=== PATIENT | female | born 1985 | race Caucasian/White ===

== ENCOUNTER 2018-10-26 15:34 | Outpatient (REF) | payer BC, SELFPAY ==
[2018-10-26 19:55] LABS: HCT 42.3 % (36.0-46.0); HGB 14.3 g/dL (12.0-15.5); Mean Corp. HGB Concentration 33.8 g/dL (32.0-36.0); Mean Corpuscular Hemoglobin 32.1 pg (27.0-33.0); Mean Corpuscular Volume 95.1 fL (80-95); Mean Platelet Volume 10.6 fL (8.0-11.0); Platelet Count 284 x1000/uL (130-400); RBC 4.45 m/cumm (4.00-5.20); RBC Distribution Width 12.6 % (11.7-14.6); White Blood Cell Count 10.86 k/cumm (4.4-10.8)
[2018-10-26 20:14] LABS: Anion Gap 8.4 mmol/L (3-11); BUN 11 mg/dL (7-18); CO2 27.6 mmol/L (21.0-32.0); CREATININE 0.95 mg/dL (0.55-1.02); Calcium 8.6 mg/dL (8.5-10.1); Chloride 105 mmol/L (98-107); Glucose 112 mg/dL (70-100); Potassium 3.4 mmol/L (3.5-5.1); Sodium 141 mmol/L (136-145); TSH 4.49 uIU/mL (0.358-3.74)
== END 2018-10-26 15:54 ==
LOC: NCHCN 15:34
PROVIDERS: PCP Nurse Practitioner Family; Visit Provider Nurse Practitioner Family
DX: R00.2 Palpitations (principal)
CPT/HCPCS: 80048; 85027; 84443

== ENCOUNTER 2019-06-27 17:16 | Outpatient (REF) | payer BC, SELFPAY ==
[2019-06-27 20:52] LABS: TSH (W/Ref FT4) 1.36 uIU/mL (0.36-3.74)
== END 2019-06-27 17:36 ==
LOC: NCHCN 17:16
PROVIDERS: PCP Nurse Practitioner Family; Visit Provider Nurse Practitioner Family
DX: R00.2 Palpitations (principal)
CPT/HCPCS: 84443

== ENCOUNTER 2021-07-07 19:50 | Outpatient (REF) | payer SELFPAY ==
[2021-07-09 13:38] LABS: COVID-19 RT-PCR UVMMC Result Positive (Negative)
== END 2021-07-07 19:51 | disposition home or self-care (01) ==
LOC: NCHCN 19:50
PROVIDERS: PCP Nurse Practitioner Family; Visit Provider Nurse Practitioner Family
DX: Z20.822 Contact with and (suspected) exposure to COVID-19 (principal)
CPT/HCPCS: U0003

== ENCOUNTER 2024-07-05 14:56 | Outpatient (REF) | payer MEDICAID, SELFPAY ==
[2024-07-05 20:45] LABS: ALT 86 U/L (14-59); AST 194 U/L (15-37); Albumin 2.6 g/dL (3.4-5.0); Alkaline Phosphatase 190 U/L (46-116); Anion Gap 8.2 mmol/L (3-11); BUN 10 mg/dL (7-18); Bilirubin, Direct 0.1 mg/dL (0.0-0.2); Bilirubin, Total 0.19 mg/dL (0.2-1.0); CO2 23.8 mmol/L (21.0-32.0); CREATININE 0.7 mg/dL (0.55-1.02); Calcium 8.1 mg/dL (8.5-10.1); Chloride 104 mmol/L (98-107); Estimated GFR 112.75 (mL/min/1.73m2); Glucose 90 mg/dL (74-106); Magnesium 1.7 mg/dL (1.8-2.4); Potassium 3.9 mmol/L (3.5-5.1); Sodium 136 mmol/L (136-145); Total Protein 6.1 g/dL (6.4-8.2)
== END 2024-07-05 14:57 | disposition home or self-care (01) ==
LOC: NCHCN 14:56
PROVIDERS: PCP Nurse Practitioner Family; Visit Provider Nurse Practitioner Family
DX: E87.6 Hypokalemia (principal); F10.10 Alcohol abuse, uncomplicated; E83.42 Hypomagnesemia
CPT/HCPCS: 80048; 80076; 83735

== ENCOUNTER 2025-06-20 15:49 | Outpatient (REF) | payer MEDICAID, SELFPAY ==
[2025-06-20 21:42] LABS: Abs Immature Grans 0.06 10^3/uL (0.0-0.06); HCT 41.8 % (36.0-46.0); HGB 15.0 g/dL (11.2-15.7); Immature Grans % 0.5 %; MCH 38.2 pg (27.0-33.0); MCHC 35.9 % (32.0-36.0); MCV 106 fL (80-95); MPV 10.1 fL (8.0-11.0); Platelet Count 433 10^3/uL (130-400); RBC 3.93 10^6/uL (3.93-5.22); RDW 14.4 % (11.7-14.6); RDW-SD 57.1 fL; WBC 12.88 10^3/uL (4.4-10.8)
[2025-06-20 22:17] LABS: ALT 55 U/L (14-59); AST 64 U/L (15-37); Albumin 2.8 g/dL (3.4-5.0); Alkaline Phosphatase 179 U/L (46-116); Anion Gap 10.0 mmol/L (3-11); BUN 2 mg/dL (7-18); Bilirubin, Direct 0.1 mg/dL (0.0-0.2); Bilirubin, Total 0.4 mg/dL (0.2-1.0); CO2 29.0 mmol/L (21.0-32.0); Calcium 8.1 mg/dL (8.5-10.1); Chloride 102 mmol/L (98-107); Estimated GFR 112.05 (mL/min/1.73m2); Glucose 129 mg/dL (74-106); Magnesium 1.9 mg/dL (1.8-2.4); Sodium 141 mmol/L (136-145); Total Protein 5.6 g/dL (6.4-8.2)
[2025-06-20 22:22] LABS: Macrocytosis 2+
[2025-06-20 22:28] LABS: Hemoglobin A1C 5.4 % (<5.7)
[2025-06-20 22:34] LABS: Potassium 2.3 mmol/L (3.5-5.1)
== END 2025-06-20 15:50 | disposition home or self-care (01) ==
LOC: NCHCN 15:49
PROVIDERS: Visit Provider Nurse Practitioner Family
DX: R73.9 Hyperglycemia, unspecified (principal); R74.01 Elevation of levels of liver transaminase levels; E83.42 Hypomagnesemia; D64.9 Anemia, unspecified
CPT/HCPCS: 80048; 80076; 83036; 83735; 85025

== ENCOUNTER 2025-06-25 17:18 | Outpatient (REF) | payer MEDICAID, SELFPAY ==
[2025-06-25 19:32] LABS: Anion Gap 12.2 mmol/L (3-11); BUN 2 mg/dL (7-18); CO2 20.8 mmol/L (21.0-32.0); Calcium 8.7 mg/dL (8.5-10.1); Chloride 103 mmol/L (98-107); Estimated GFR 112.05 (mL/min/1.73m2); Glucose 126 mg/dL (74-106); Potassium 3.2 mmol/L (3.5-5.1); Sodium 136 mmol/L (136-145)
== END 2025-06-25 17:19 | disposition home or self-care (01) ==
LOC: NCHCN 17:18
PROVIDERS: Visit Provider Nurse Practitioner Family
DX: E87.6 Hypokalemia (principal)
CPT/HCPCS: 80048

== ENCOUNTER 2025-06-27 17:07 | Outpatient (REF) | payer MEDICAID, SELFPAY ==
[2025-06-27 21:15] LABS: Anion Gap 15.4 mmol/L (3-11); BUN 2 mg/dL (7-18); CO2 17.6 mmol/L (21.0-32.0); Calcium 8.6 mg/dL (8.5-10.1); Chloride 104 mmol/L (98-107); Estimated GFR 116.30 (mL/min/1.73m2); Glucose 161 mg/dL (74-106); Potassium 3.1 mmol/L (3.5-5.1); Sodium 137 mmol/L (136-145)
== END 2025-06-27 17:08 | disposition home or self-care (01) ==
LOC: NCHCN 17:07
PROVIDERS: Visit Provider Nurse Practitioner Family
DX: E87.6 Hypokalemia (principal)
CPT/HCPCS: 80048

== ENCOUNTER 2025-07-31 13:36 | Outpatient (REF) | payer MEDICAID, SELFPAY ==
[2025-07-31 20:17] LABS: ALT 39 U/L (14-59); AST 57 U/L (15-37); Albumin 2.8 g/dL (3.4-5.0); Alkaline Phosphatase 160 U/L (46-116); Anion Gap 10.5 mmol/L (3-11); BUN 3 mg/dL (7-18); Bilirubin, Total 0.5 mg/dL (0.2-1.0); CO2 25.5 mmol/L (21.0-32.0); Calcium 8.3 mg/dL (8.5-10.1); Chloride 105 mmol/L (98-107); Estimated GFR 116.30 (mL/min/1.73m2); Glucose 138 mg/dL (74-106); Sodium 141 mmol/L (136-145); Total Protein 6.2 g/dL (6.4-8.2)
[2025-07-31 20:26] LABS: Potassium 2.7 mmol/L (3.5-5.1)
== END 2025-07-31 13:37 | disposition home or self-care (01) ==
LOC: NCHCN 13:36
PROVIDERS: Visit Provider Nurse Practitioner Family
DX: E87.6 Hypokalemia (principal)
CPT/HCPCS: 80053

== ENCOUNTER 2025-08-09 15:01 | Outpatient (REF) | payer MEDICAID, SELFPAY ==
[2025-08-09 19:22] LABS: Abs Immature Grans 0.08 10^3/uL (0.0-0.06); HCT 39.3 % (36.0-46.0); HGB 14.2 g/dL (11.2-15.7); Immature Grans % 0.5 %; MCH 39.9 pg (27.0-33.0); MCHC 36.1 % (32.0-36.0); MCV 110 fL (80-95); MPV 9.6 fL (8.0-11.0); Platelet Count 423 10^3/uL (130-400); RBC 3.56 10^6/uL (3.93-5.22); RDW 14.3 % (11.7-14.6); RDW-SD 58.3 fL; WBC 15.13 10^3/uL (4.4-10.8)
[2025-08-09 19:43] LABS: Iron 183 ug/dL (50-170); Total Iron Binding Capacity 229 ug/dL (250-450)
[2025-08-09 19:58] LABS: Ferritin 712 ng/mL (8-252); Magnesium 1.7 mg/dL (1.8-2.4)
[2025-08-09 20:12] LABS: Macrocytosis 1+
== END 2025-08-09 15:02 | disposition home or self-care (01) ==
LOC: NCHCN 15:01
PROVIDERS: Visit Provider Nurse Practitioner Family
DX: R19.7 Diarrhea, unspecified (principal)
CPT/HCPCS: 82728; 83540; 83550; 83735; 85025

== ENCOUNTER 2025-08-27 14:00 | Outpatient (REF) | payer MEDICAID, SELFPAY ==
[2025-08-27 19:34] LABS: Abs Immature Grans 0.06 10^3/uL (0.0-0.06); HCT 40.5 % (36.0-46.0); HGB 13.2 g/dL (11.2-15.7); Immature Grans % 0.6 %; MCH 37.5 pg (27.0-33.0); MCHC 32.6 % (32.0-36.0); MCV 115 fL (80-95); MPV 10.0 fL (8.0-11.0); Platelet Count 403 10^3/uL (130-400); RBC 3.52 10^6/uL (3.93-5.22); RDW 14.6 % (11.7-14.6); RDW-SD 62.4 fL; WBC 10.42 10^3/uL (4.4-10.8)
[2025-08-27 19:52] LABS: ALT 15 U/L (10-49); AST 25 U/L (<34); Albumin 3.8 g/dL (3.4-5.0); Alkaline Phosphatase 97 U/L (46-116); Anion Gap 7.6 mmol/L (3-11); BUN 7 mg/dL (9-23); Bilirubin, Total 0.30 mg/dL (0.2-1.2); CO2 26.4 mmol/L (20.0-31.0); Calcium 9.2 mg/dL (8.3-10.6); Chloride 108 mmol/L (98-107); Glucose 98 mg/dL (74-106); Potassium 3.6 mmol/L (3.5-5.1); Sodium 142 mmol/L (136-145); Total Protein 6.1 g/dL (5.7-8.2)
[2025-08-27 19:58] LABS: Macrocytosis 2+
== END 2025-08-27 14:01 | disposition home or self-care (01) ==
LOC: NCHCN 14:00
PROVIDERS: Visit Provider Nurse Practitioner Family
DX: F41.1 Generalized anxiety disorder (principal)
CPT/HCPCS: 80053; 85025